=== PATIENT | male | born 1955 | race Hispanic/Latino ===

== ENCOUNTER 2017-08-20 01:28 | Emergency (ER) | payer MEDICARE, OTHER ==
[2017-08-20 02:15] LABS: Basophils % (Auto) 0.5 % (0.0-1.8); Eosinophils # (Auto) 0.3 K/mm3 (0.0-0.4); Eosinophils % (Auto) 4.6 % (0.0-4.3); Hematocrit 40.5 % (35.5-45.6); Hemoglobin 13.9 gm/dl (11.8-15.2); Lymphocytes # (Auto) 1.7 K/mm3 (1.2-5.4); Lymphocytes % (Auto) 28.8 % (13.4-35.0); Mean Corpuscular HGB Conc 34 % (32-34); Mean Corpuscular Hemoglobin 31 pg (28-32); Mean Corpuscular Volume 89 fl (84-94); Monocytes # (Auto) 0.5 K/mm3 (0.0-0.8); Monocytes % (Auto) 8.7 % (0.0-7.3); Platelet Count 221 K/mm3 (140-440); Red Blood Count 4.55 M/mm3 (3.65-5.03); Red Cell Distribution Width 14.7 % (13.2-15.2)
[2017-08-20 02:25] LABS: INR 0.9 (0.87-1.13)
[2017-08-20 02:26] LABS: Partial Thromboplastin Time 26.5 Sec. (24.2-36.6)
[2017-08-20 02:36] LABS: Alanine Aminotransferase 37 units/L (7-56); Albumin 3.7 g/dL (3.9-5); BUN/Creatinine Ratio 15; Blood Urea Nitrogen 9 mg/dL (9-20); Calcium 8.9 mg/dL (8.4-10.2); Hemolysis Index 14
[2017-08-20 06:38] LABS: Bilirubin,Urine NEG (Negative); Blood,Urine NEG (Negative); Color,Urine Yellow (Yellow); Mucus,Urine FEW /HPF; Protein,Urine <15 mg/dL mg/dL (Negative); Urobilinogen,Urine < 2.0 mg/dL (<2.0); WBC,Urine < 1.0 /HPF (0.0-6.0)
--- NOTE | 2017-08-20 10:59 | XRay Report ---
AP CHEST: HISTORY: Cough AP view of the chest demonstrates a normal mediastinal and cardiac contour with clear lungs and normal bony and soft tissue structures. IMPRESSION: No acute cardiopulmonary process identified.
--- NOTE | 2017-08-20 13:06 | Emergency Department Report ---
ED General Adult HPI - General Chief complaint: Extremity Injury, Lower Stated complaint: BILATERAL LEG EDEMA Time Seen by Provider: 08/20/17 09:27 Source: patient, EMS Mode of arrival: Ambulatory Limitations: No Limitations - History of Present Illness Initial comments: Patient was hospitalized in a psychiatric hospital earlier. He was released this morning sent to the emergency room for alert swelling. Patient is a poor historian. He was unable to tell me why he is in the hospital. I called and spoke with his brother Mr. Jorge Higuera. He is very aggressive patient used to live in [place] and came to [place] and is unable to go back because he has some psychiatric issues. Patient denies suicidal homicidal ideations. However the brother said he is a danger to all this because he becomes angry easily and when his mind he can heart somebody. Patient brother does not think he can take care of himself and he wants him evaluated by a psychiatrist. Patient is unable to go back to [place] due to his mental health issues. Patient brother also said that he if he is discharged, the patient will be homeless with nowhere to go. He is worried that the patient is unable to care for himself. Patient is incoherent and cannot answer basic questions. He appears unable to take care of himself. -: Gradual Location: lower extremity Severity scale (0 -10): 4 Quality: constant Consistency: constant Improves with: none Worsens with: none Associated Symptoms: denies other symptoms Treatments Prior to Arrival: none - Related Data Allergies Allergy/AdvReac Type Severity Reaction Status Date / Time promethazine [From Phenergan] Allergy Unknown Verified 08/20/17 01:34 ED Review of Systems ROS: Stated complaint: BILATERAL LEG EDEMA Other details as noted in HPI Comment: Unobtainable due to pts medical conditions (patient is incoherent and unable to answer basic questions.) ED Past Medical Hx - Past Medical History Previous Medical History?: Yes Hx Hypertension: Yes Hx Diabetes: Yes Hx Seizures: Yes Hx COPD: Yes - Surgical History Past Surgical History?: Yes Additional Surgical History: tonsilectomy, adnoids, carpal tunnel - Social History Smoking Status: Current Every Day Smoker Substance Use Type: Alcohol, Marijuana ED Physical Exam - General Limitations: No Limitations General appearance: alert, in no apparent distress - Head Head exam: Present: atraumatic, normocephalic, normal inspection - Eye Eye exam: Present: normal appearance, PERRL, EOMI - ENT ENT exam: Present: normal exam - Neck Neck exam: Present: normal inspection - Respiratory Respiratory exam: Present: normal lung sounds bilaterally - Cardiovascular Cardiovascular Exam: Present: regular rate, normal rhythm - GI/Abdominal GI/Abdominal exam: Present: soft, normal bowel sounds. Absent: tenderness - Extremities Exam Extremities exam: Present: tenderness, pedal edema - Back Exam Back exam: Present: full ROM - Neurological Exam Neurological exam: Present: alert - Psychiatric Psychiatric exam: Present: depressed, flat affect. Absent: homicidal ideation, suicidal ideation - Skin Skin exam: Present: warm, dry, normal color ED Course Vital Signs 08/20/17 08/20/17 08/20/17 01:38 07:37 07:45 Temperature 98.5 F Pulse Rate 78 Respiratory 20 Rate Blood Pressure 161/84 167/98 O2 Sat by Pulse 95 97 92 Oximetry 08/20/17 08/20/17 08/20/17 08:00 08:15 08:30 Temperature Pulse Rate Respiratory Rate Blood Pressure 175/91 170/96 157/84 O2 Sat by Pulse 95 95 93 Oximetry 08/20/17 08/20/17 08/20/17 08:45 09:00 09:15 Temperature Pulse Rate Respiratory Rate Blood Pressure 173/91 193/114 164/99 O2 Sat by Pulse 92 98 95 Oximetry 08/20/17 08/20/17 08/20/17 09:30 09:45 10:00 Temperature Pulse Rate Respiratory Rate Blood Pressure 157/94 168/102 164/99 O2 Sat by Pulse 95 93 97 Oximetry 08/20/17 08/20/17 08/20/17 10:48 11:00 11:15 Temperature Pulse Rate Respiratory Rate Blood Pressure 198/131 173/103 189/103 O2 Sat by Pulse 96 94 96 Oximetry 08/20/17 08/20/17 08/20/17 12:07 12:15 13:03 Temperature Pulse Rate Respiratory Rate Blood Pressure 193/109 202/131 67/38 O2 Sat by Pulse 97 98 Oximetry 08/20/17 08/20/17 08/20/17 14:07 14:24 14:36 Temperature Pulse Rate Respiratory Rate Blood Pressure 182/93 162/85 165/85 O2 Sat by Pulse Oximetry - Reevaluation(s) Reevaluation #1: 08/20/17 13:08 1013 form was signed and psychiatric evaluation initiated. ED Medical Decision Making - Lab Data Result diagrams: 08/20/17 01:58 08/20/17 01:58 - Medical Decision Making Leg Swelling. Psychiatric Illness. Critical care attestation.: If time is entered above; I have spent that time in minutes in the direct care of this critically ill patient, excluding procedure time. ED Disposition Clinical Impression: Depression Qualifiers: Depression Type: major depressive disorder Major depression recurrence: single episode Active/Remission status: currently active Major depression episode severity: severe Psychotic features: without psychotic features Qualified Code(s ): F32.2 - Major depressive disorder, single episode, severe without psychotic features Schizophrenia Qualifiers: Schizophrenia type: unspecified Qualified Code(s): F20.9 - Schizophrenia, unspecified Disposition: [id number] PSY HOSP/PSY UNIT Is pt being admited?: No Does the pt Need Aspirin: No Condition: Stable Referrals: PRIMARY CARE, [Primary Care Provider] - 3-5 Days
[2017-08-20] MEDS ORDERED: LOPRESSOR IV ONE (14:15)
[2017-08-20] MEDS ORDERED: ZESTRIL PO ONE (14:17)
[2017-08-20 14:40] LABS: Amphetamine Screen,Urine PRESUMPTIVE NEGATIVE; Benzodiazepines Screen,Urine PRESUMPTIVE NEGATIVE; Cannabinoid Screen,Urine PRESUMPTIVE NEGATIVE; Cocaine Screen,Urine PRESUMPTIVE NEGATIVE; Methadone Screen,Urine PRESUMPTIVE NEGATIVE; Opiate Screen,Urine PRESUMPTIVE NEGATIVE
[2017-08-20 15:54] VITALS: BP 155/81
== END 2017-08-20 16:45 ==
LOC: ED 01:28
DX: F32.2 Major depressive disorder, single episode, severe without psychotic features (principal); F20.9 Schizophrenia, unspecified; R60.0 Localized edema; I10 Essential (primary) hypertension; E11.9 Type 2 diabetes mellitus without complications; J44.9 Chronic obstructive pulmonary disease, unspecified; F12.10 Cannabis abuse, uncomplicated; F17.200 Nicotine dependence, unspecified, uncomplicated; Z90.89 Acquired absence of other organs; Z88.8 Allergy status to other drugs, medicaments and biological substances; Z79.899 Other long term (current) drug therapy
CPT/HCPCS: 36415; 71045; 80053; 80307; 81001; 83880; 85025; 85379; 85610; 85730; 93970; 99285; G0480; 80320